=== PATIENT | male | born 1975 ===

== ENCOUNTER 2016-10-27 09:03 | Inpatient (IN) | payer SELFPAY ==
[2016-10-27] VITALS (7 sets, daily range): BP systolic 117–154; BP diastolic 72–100
[~2016-10-27] VITALS: Ht 162.5 cm; Wt 87.1 kg
[~2016-10-27 09:03] MED LIST: 'PARAFON FORTE500 M1 PO; ALBUTEROL0.09 MG/A2 INH; ANUSOL-HC25 MG R; CYCLOBENZAPRINE10 MG PO; FLEXERIL10 MG PO; HYDROCODONE BIT1 T11 PO; MOTRIN800 MG PO; Motrin,Rufen800 MG PO; NAPROSYN500 MG PO; NORCO 10-325 T1 EACH PO; NORCO 325 MG-101 TAB PO; PEPCID40 MG PO; PERCOCET 325 MG1 TA2 PO; PERCOCET 325 MG1 TA7 PO; PREDNICOT20 MG PO; PREDNISONE20 M1 PO; ROBITUSSIN AC 110 ML PO; SKELAXIN800 MG PO; ULTRAM50 MG PO; ZANTAC 150150 MG PO; ZITHROMAX Z PA250 MG PO
[2016-10-27 09:23] LABS: BASO % 0.3 % (0.0-1.0); EOS # 0.1 10*3/uL (0.0-0.4); HEMATOCRIT 43.4 % (42.0-52.0); HEMOGLOBIN 15.2 g/dl (14.0-18.0); IG # 0.1 10*3/uL (0.0-0.1); LYMPH % 27.7 % (27.0-41.0); MEAN CELL VOLUME 86.1 fl (80.0-94.0); MEAN CORPUSCULAR HGB 30.2 pg (27.0-31.0); MEAN PLATELET VOLUME 9.3 fl (9.6-12.3); MONO # 0.2 10*3/uL (0.1-1.0); MONO % 4.5 % (3.0-9.0); NEUT # 2.3 10*3/uL (2.3-7.9); NEUT % 64.1 % (47.0-73.0); PLATELET COUNT AUTOMATED 130 10*3/uL (130-400); RED BLOOD COUNT 5.04 10*6/uL (4.50-5.90); RED CELL DISTRI WIDTH 13.7 % (0-14.5); WHITE BLOOD COUNT 3.6 10*3/uL (4.8-10.8)
[2016-10-27 09:53] LABS: ALBUMIN 3.8 gm/dl (3.1-4.5); ALKALINE PHOSPHATASE 122 U/L (45-117); BILIRUBIN, TOTAL 0.8 mg/dl (0.2-1.0); BUN 16 mg/dl (7-24); CARBON DIOXIDE 23 mmol/L (21-32); CHLORIDE 97 mmol/L (98-107); EST GLOM FILT AFRICAN AMERICAN > 60 ml/min; GLUCOSE 456 mg/dL (65-99); POTASSIUM 4.4 mmol/L (3.5-5.1); SGOT/AST 43 IU/L (3-35); SGPT/ALT 101 U/L (12-78); SODIUM 134 mmol/L (136-145); TOTAL PROTEIN 7.3 gm/dL (6.4-8.2)
[2016-10-27] MEDS ORDERED: IBU800 MG PO (11:46)
[2016-10-27 15:00] LABS: ABG CO2 CONTENT 23.6 mmol/L (23-27); ABG HCO3 22.1 mmol/l (22-26); ABG TEMPERATURE 98.2 F (98.0-99.0); ARTERIAL BLOOD GAS PH 7.268 (7.35-7.45)
[2016-10-27 17:56] LABS: CPK 264 U/L (39-308)
[2016-10-27 17:57] LABS: TROPONIN I < 0.015 ng/ml (<0.045)
[2016-10-27 18:23] LABS: ABG BASE EXCESS -2.7 mmol/L (-2.0-2.0); ABG CO2 CONTENT 24.4 mmol/L (23-27); ABG TEMPERATURE 97.2 F (98.0-99.0); ARTERIAL BLOOD GAS PH 7.336 (7.35-7.45); ARTERIAL BLOOD GAS PO2 86.1 mmHg (80-90)
[2016-10-27 19:58] LABS: BILIRUBIN NEGATIVE (NEGATIVE); BLOOD NEGATIVE (NEGATIVE); CLARITY CLEAR (CLEAR); COLOR YELLOW (YELLOW); GLUCOSE 3+ (NEGATIVE); KETONE NEGATIVE (NEGATIVE); LEUKO ESTERASE NEGATIVE (NEGATIVE); NITRITE NEGATIVE (NEGATIVE); PH 5.5 (5.0-9.0); PROTEIN 1+ (NEGATIVE); UROBILINOGEN 0.2 E.U./dl (0.2-1.0)
[2016-10-27 20:08] LABS: URINE AMPHETAMINES < 1000 (1000ng/ml); URINE BARBITURATES < 200 (200ng/ml); URINE COCAINE < 300 (300ng/ml)
[2016-10-27 20:12] LABS: BACTERIA TRACE
[2016-10-27 20:13] LABS: RBC 0-2 rbc/hpf (0-2)
[2016-10-28] VITALS: BP 119/62
[2016-10-28 00:50] LABS: CPK 224 U/L (39-308)
[2016-10-28 00:52] LABS: TROPONIN I < 0.015 ng/ml (<0.045)
[2016-10-28 04:00] VITALS: BP 97/41
[2016-10-28 06:14] LABS: CPK 159 U/L (39-308); TROPONIN I < 0.015 ng/ml (<0.045)
[2016-10-28 06:19] LABS: BASO % 0.5 % (0.0-1.0); EOS # 0.1 10*3/uL (0.0-0.4); EOS % 2.9 % (1.0-4.0); LYMPH # 1.2 10*3/uL (1.3-4.4); LYMPH % 27.6 % (27.0-41.0); MEAN CELL VOLUME 87.2 fl (80.0-94.0); MEAN CORPUSCULAR HGB 30.4 pg (27.0-31.0); MEAN CORPUSCULAR HGB CONC 34.8 g/dl (33.0-37.0); MEAN PLATELET VOLUME 10.3 fl (9.6-12.3); MONO # 0.3 10*3/uL (0.1-1.0); MONO % 6.4 % (3.0-9.0); NEUT # 2.6 10*3/uL (2.3-7.9); NEUT % 62.1 % (47.0-73.0); PLATELET COUNT AUTOMATED 128 10*3/uL (130-400); RED BLOOD COUNT 4.05 10*6/uL (4.50-5.90); WHITE BLOOD COUNT 4.2 10*3/uL (4.8-10.8)
[2016-10-28 06:21] LABS: HEMATOCRIT 35.3 % (42.0-52.0); HEMOGLOBIN 12.3 g/dl (14.0-18.0)
[2016-10-28 06:29] LABS: ALBUMIN 3.2 gm/dl (3.1-4.5); BUN 16 mg/dl (7-24); CARBON DIOXIDE 26 mmol/L (21-32); CHLORIDE 105 mmol/L (98-107); EST GLOM FILT AFRICAN AMERICAN > 60 ml/min; GLUCOSE 156 mg/dL (65-99); MAGNESIUM 1.7 mg/dL (1.5-2.1); POTASSIUM 3.8 mmol/L (3.5-5.1); SODIUM 139 mmol/L (136-145); TRIGLYCERIDES 213 mg/dl (<150); VLDL CHOLESTEROL 43 mg/dL (6-40)
[2016-10-28 06:36] LABS: HEMOGLOBIN A1c 9.4 % (4.8-5.6)
[2016-10-28 06:39] LABS: ALKALINE PHOSPHATASE 72 U/L (45-117); BILIRUBIN, TOTAL 0.8 mg/dl (0.2-1.0); CHOLESTEROL 189 mg/dL (<200); HDL CHOLESTEROL 34 mg/dl (40-60); LDL CHOLESTEROL 112 mg/dL (9-159); PHOSPHOROUS 2.5 mg/dL (2.5-4.9); SGOT/AST 58 IU/L (3-35); SGPT/ALT 90 U/L (12-78); TOTAL PROTEIN 6.2 gm/dL (6.4-8.2)
[2016-10-28 06:41] LABS: THYROID STIM HORMONE (HS) 0.873 uIU/ml (0.358-4.75)
[2016-10-28 07:00] LABS: VITAMIN D, 25-HYDROXY 10.3 ng/mL (30-100)
[2016-10-28 07:01] LABS: FOLIC ACID 12.74 ng/mL (>5.38)
[2016-10-28 07:43] LABS: PROTHROMBIN TIME 10.3 SECONDS (9.0-12.4)
[2016-10-28 08:00] VITALS: BP 129/78
[2016-10-28 12:00] VITALS: BP 124/82; BP 128/86
== END 2016-10-28 15:27 | disposition left against medical advice (07) | DRG 917 ==
LOC: ED 09:03 → EDHOLD 10:23 → ICCU 10:23 → 5E 10-28 14:47
PROVIDERS: Internal Medicine; Nurse Practitioner Family
DX: T40.1X1A Poisoning by heroin, accidental (unintentional), initial encounter (principal); N17.0 Acute kidney failure with tubular necrosis; G93.41 Metabolic encephalopathy; J18.9 Pneumonia, unspecified organism; E87.1 Hypo-osmolality and hyponatremia; M54.31 Sciatica, right side; E11.65 Type 2 diabetes mellitus with hyperglycemia; Z53.21 Procedure and treatment not carried out due to patient leaving prior to being seen by health care provider; D72.819 Decreased white blood cell count, unspecified; Z91.14 Patient's other noncompliance with medication regimen; Z87.11 Personal history of peptic ulcer disease; Z87.81 Personal history of (healed) traumatic fracture; Z83.3 Family history of diabetes mellitus; Z80.3 Family history of malignant neoplasm of breast; Z79.1 Long term (current) use of non-steroidal anti-inflammatories (NSAID); Y92.89 Other specified places as the place of occurrence of the external cause

== ENCOUNTER 2018-02-12 11:43 | Inpatient (IN) | payer SELFPAY ==
[~2018-02-12] VITALS: Ht 162.5 cm; Wt 86.2 kg
[~2018-02-12 11:43] MED LIST changes: +IBU800 MG PO
[2018-02-12 11:46] VITALS: BP 136/96
[2018-02-12 12:11] LABS: BASO % 0.3 % (0.0-1.0); EOS # 0.1 10*3/uL (0.0-0.4); EOS % 0.7 % (1.0-4.0); HEMATOCRIT 45.8 % (42.0-52.0); HEMOGLOBIN 16.5 g/dl (14.0-18.0); LYMPH # 0.6 10*3/uL (1.3-4.4); MEAN CELL VOLUME 86.7 fl (80.0-94.0); MEAN CORPUSCULAR HGB 31.3 pg (27.0-31.0); MEAN PLATELET VOLUME 9.7 fl (9.6-12.3); MONO # 0.4 10*3/uL (0.1-1.0); MONO % 5.3 % (3.0-9.0); NEUT # 6.3 10*3/uL (2.3-7.9); NEUT % 85.3 % (47.0-73.0); PLATELET COUNT AUTOMATED 153 10*3/uL (130-400); RED BLOOD COUNT 5.28 10*6/uL (4.50-5.90); WHITE BLOOD COUNT 7.4 10*3/uL (4.8-10.8)
[2018-02-12 12:20] LABS: ACT PARTIAL THROMBO TIME 22.3 SECONDS (20.8-31.5)
[2018-02-12 12:29] LABS: ALBUMIN 4.8 gm/dl (3.1-4.5); ALKALINE PHOSPHATASE 135 U/L (45-117); BUN 30 mg/dl (7-24); CHLORIDE 98 mmol/L (98-107); CREATININE 1.48 mg/dL (0.70-1.30); POTASSIUM 4.2 mmol/L (3.5-5.1); SGOT/AST 576 IU/L (3-35); SGPT/ALT 942 U/L (12-78); SODIUM 132 mmol/L (136-145); TOTAL PROTEIN 9.1 gm/dL (6.4-8.2)
[2018-02-12 13:26] LABS: BILIRUBIN NEGATIVE (NEGATIVE); BLOOD NEGATIVE (NEGATIVE); CLARITY CLEAR (CLEAR); COLOR YELLOW (YELLOW); GLUCOSE 3+ (NEGATIVE); KETONE NEGATIVE (NEGATIVE); LEUKO ESTERASE NEGATIVE (NEGATIVE); NITRITE NEGATIVE (NEGATIVE); SPECIFIC GRAVITY <= 1.005 (1.005-1.030); UROBILINOGEN 0.2 E.U./dl (0.2-1.0)
[2018-02-12 13:47] LABS: EPITHELIAL CELLS 0-2
[2018-02-12 16:00] VITALS: BP 154/98
[2018-02-12 20:00] VITALS: BP 136/84
[2018-02-12 20:38] VITALS: BP 136/84
[2018-02-12 20:47] VITALS: BP 142/80
[2018-02-13] VITALS: BP 131/74
[2018-02-13 04:56] LABS: URINE AMPHETAMINES < 1000 (1000ng/ml); URINE BARBITURATES < 200 (200ng/ml); URINE BENZODIAZEPINES < 200 (200ng/ml); URINE CANNABINOIDS (THC) < 50 (50ng/ml); URINE COCAINE < 300 (300ng/ml); URINE METHADONE < 300 (300ng/ml); URINE OPIATES > 300 (300ng/ml)
[2018-02-13 05:01] LABS: URINE PHENCYCLIDINE < 25 (25ng/ml)
[2018-02-13 07:07] LABS: BASO % 0.4 % (0.0-1.0); EOS # 0.2 10*3/uL (0.0-0.4); EOS % 3.9 % (1.0-4.0); LYMPH % 22.5 % (27.0-41.0); MEAN CORPUSCULAR HGB CONC 34.3 g/dl (33.0-37.0); MEAN PLATELET VOLUME 10.1 fl (9.6-12.3); MONO # 0.3 10*3/uL (0.1-1.0); MONO % 6.3 % (3.0-9.0); NEUT % 66.2 % (47.0-73.0); RED BLOOD COUNT 4.39 10*6/uL (4.50-5.90); RED CELL DISTRI WIDTH 13.3 % (0-14.5); WHITE BLOOD COUNT 4.6 10*3/uL (4.8-10.8)
[2018-02-13 07:25] LABS: ALBUMIN 3.6 gm/dl (3.1-4.5); BUN 21 mg/dl (7-24); CHLORIDE 104 mmol/L (98-107); CHOLESTEROL 230 mg/dL (<200); CREATININE 0.69 mg/dL (0.70-1.30); HEMATOCRIT 39.7 % (42.0-52.0); HEMOGLOBIN 13.6 g/dl (14.0-18.0); MEAN CELL VOLUME 90.4 fl (80.0-94.0); PHOSPHOROUS 2.7 mg/dL (2.5-4.9); PLATELET COUNT AUTOMATED 104 10*3/uL (130-400); POTASSIUM 4.5 mmol/L (3.5-5.1); SGOT/AST 472 IU/L (3-35); SGPT/ALT 774 U/L (12-78); SODIUM 138 mmol/L (136-145); TOTAL PROTEIN 7.1 gm/dL (6.4-8.2); TRIGLYCERIDES 160 mg/dl (<150); VLDL CHOLESTEROL 32 mg/dL (6-40)
[2018-02-13 07:26] LABS: ALKALINE PHOSPHATASE 104 U/L (45-117); HDL CHOLESTEROL 27 mg/dl (40-60); LDL CHOLESTEROL 171 mg/dL (9-159)
[2018-02-13 08:00] VITALS: BP 135/83
[2018-02-13 12:00] VITALS: BP 130/86
[2018-02-13 13:08] LABS: HEPATITIS B SURFACE AG Negative (Negative)
[2018-02-13] MEDS ORDERED: Humalog SQ (13:20)
[2018-02-13] MEDS ORDERED: HYDROCODONE-AC1 EAC1 PO (13:20)
[2018-02-13] MEDS ORDERED: LEVEMIR100 UNIT/1 SQ ×2 (13:20→14:16)
[2018-02-13] MEDS ORDERED: LISINOPRIL2.5 MG PO (13:23)
[2018-02-17 10:24] LABS: HEPATITIS C VIRUS ANTIBODY >11.0 s/co (0.0-0.9)
[2018-03-06] MEDS ORDERED: VIBRAMYCIN100 MG PO (22:22)
[2018-03-06] MEDS ORDERED: KEFLEX500 M1 PO (22:22)
[2018-03-06] MEDS ORDERED: ULTRAM50 MG PO (22:45)
== END 2018-02-13 16:10 | disposition home or self-care (01) | DRG 637 ==
LOC: ED 11:43 → EDHOLD 14:17 → 5E 14:17
PROVIDERS: Emergency Medicine; Family Medicine
DX: E11.65 Type 2 diabetes mellitus with hyperglycemia (principal); N17.0 Acute kidney failure with tubular necrosis; E87.1 Hypo-osmolality and hyponatremia; E86.0 Dehydration; S20.221A Contusion of right back wall of thorax, initial encounter; D72.819 Decreased white blood cell count, unspecified; S93.401A Sprain of unspecified ligament of right ankle, initial encounter; R74.0 Nonspecific elevation of levels of transaminase and lactic acid dehydrogenase [LDH]; M54.5 Low back pain; Z83.3 Family history of diabetes mellitus; Y93.52 Activity, horseback riding; Y92.89 Other specified places as the place of occurrence of the external cause; Z79.4 Long term (current) use of insulin; Z79.84 Long term (current) use of oral hypoglycemic drugs; Z80.3 Family history of malignant neoplasm of breast; Z79.899 Other long term (current) drug therapy; V80.010A Animal-rider injured by fall from or being thrown from horse in noncollision accident, initial encounter; Y99.8 Other external cause status

== ENCOUNTER 2018-02-28 13:06 | Emergency (ER) | payer OTHER ==
[~2018-02-28] VITALS: Ht 162.5 cm; Wt 81.6 kg
[~2018-02-28 13:06] MED LIST changes: +HYDROCODONE-AC1 EAC1 PO; +Humalog SQ; +LEVEMIR100 UNIT/1 SQ; +LISINOPRIL2.5 MG PO
[2018-02-28] MEDS ORDERED: NORCO 10-325 T1 EACH PO (13:41)
[2018-02-28] MEDS ORDERED: KEFLEX500 M1 PO (13:41)
[2018-03-06] MEDS ORDERED: VIBRAMYCIN100 MG PO (22:22)
[2018-03-06] MEDS ORDERED: KEFLEX500 M1 PO (22:22)
[2018-03-06] MEDS ORDERED: ULTRAM50 MG PO (22:45)
== END 2018-02-28 13:49 | disposition home or self-care (01) ==
LOC: ED 13:06
DX: T24.211A Burn of second degree of right thigh, initial encounter (principal); E11.65 Type 2 diabetes mellitus with hyperglycemia; F11.10 Opioid abuse, uncomplicated; Z98.890 Other specified postprocedural states; Z79.899 Other long term (current) drug therapy; X10.0XXA Contact with hot drinks, initial encounter; Y93.89 Activity, other specified; Y92.89 Other specified places as the place of occurrence of the external cause; Y99.9 Unspecified external cause status

== ENCOUNTER 2018-05-04 10:40 | Emergency (ER) | payer OTHER ==
[~2018-05-04] VITALS: Ht 162.5 cm; Wt 79.4 kg
--- NOTE | ~2018-05-04 | EKG ---
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
[~2018-05-04 10:40] MED LIST changes: +KEFLEX500 M1 PO; +VIBRAMYCIN100 MG PO
[2018-05-04 11:42] LABS: BASO % 0.1 % (0.0-1.0); EOS % 0.3 % (1.0-4.0); HEMATOCRIT 42.2 % (42.0-52.0); HEMOGLOBIN 15.3 g/dl (14.0-18.0); LYMPH # 0.6 10*3/uL (1.3-4.4); LYMPH % 8.1 % (27.0-41.0); MEAN CELL VOLUME 84.6 fl (80.0-94.0); MEAN CORPUSCULAR HGB 30.7 pg (27.0-31.0); MEAN CORPUSCULAR HGB CONC 36.3 g/dl (33.0-37.0); MEAN PLATELET VOLUME 10.2 fl (9.6-12.3); MONO # 0.4 10*3/uL (0.1-1.0); MONO % 5.6 % (3.0-9.0); NEUT # 6.5 10*3/uL (2.3-7.9); NEUT % 85.6 % (47.0-73.0); PLATELET COUNT AUTOMATED 146 10*3/uL (130-400); RED BLOOD COUNT 4.99 10*6/uL (4.50-5.90); RED CELL DISTRI WIDTH 13.1 % (0-14.5); WHITE BLOOD COUNT 7.5 10*3/uL (4.8-10.8)
[2018-05-04 11:45] LABS: BILIRUBIN 1+ (NEGATIVE); BLOOD TRACE-INTACT (NEGATIVE); CLARITY CLEAR (CLEAR); COLOR YELLOW (YELLOW); GLUCOSE TRACE (NEGATIVE); KETONE NEGATIVE (NEGATIVE); LEUKO ESTERASE NEGATIVE (NEGATIVE); NITRITE NEGATIVE (NEGATIVE); SPECIFIC GRAVITY >= 1.030 (1.005-1.030); UROBILINOGEN 0.2 E.U./dl (0.2-1.0)
[2018-05-04 11:45] LABS: ALKALINE PHOSPHATASE 104 U/L (45-117); BUN 14 mg/dl (7-24); CHLORIDE 102 mmol/L (98-107); CREATININE 0.72 mg/dL (0.70-1.30); LIPASE 128 U/L (73-393); POTASSIUM 3.8 mmol/L (3.5-5.1); SGOT/AST 59 IU/L (3-35); SGPT/ALT 219 U/L (12-78); SODIUM 137 mmol/L (136-145); TOTAL PROTEIN 8.7 gm/dL (6.4-8.2)
[2018-05-04 11:47] LABS: TROPONIN I < 0.015 ng/ml (<0.045)
[2018-05-04 11:59] LABS: BACTERIA TRACE; MUCOUS 2+
[2018-05-05] MEDS ORDERED: ZOFRAN4 MG PO (11:50)
[2018-05-05] MEDS ORDERED: SUNMARK OMEPRAZ20 M1 PO (11:50)
[2018-05-05] MEDS ORDERED: CARAFATE1 G1 PO (11:50)
[2018-05-05] MEDS ORDERED: ZANTAC 150150 MG PO (11:50)
== END 2018-05-04 15:41 | disposition home or self-care (01) ==
LOC: ED 10:40
PROVIDERS: Nurse Practitioner
DX: R10.12 Left upper quadrant pain (principal); R07.89 Other chest pain; F10.10 Alcohol abuse, uncomplicated

== ENCOUNTER 2018-05-05 10:52 | Emergency (ER) | payer OTHER ==
[~2018-05-05] VITALS: Ht 162.5 cm; Wt 79.4 kg
[2018-05-05 11:24] LABS: BASO % 0.2 % (0.0-1.0); EOS # 0.1 10*3/uL (0.0-0.4); EOS % 1.4 % (1.0-4.0); HEMATOCRIT 38.2 % (42.0-52.0); HEMOGLOBIN 13.9 g/dl (14.0-18.0); LYMPH # 0.9 10*3/uL (1.3-4.4); MEAN CELL VOLUME 84.1 fl (80.0-94.0); MEAN CORPUSCULAR HGB 30.6 pg (27.0-31.0); MEAN CORPUSCULAR HGB CONC 36.4 g/dl (33.0-37.0); MEAN PLATELET VOLUME 10.2 fl (9.6-12.3); MONO # 0.4 10*3/uL (0.1-1.0); MONO % 6.6 % (3.0-9.0); NEUT # 4.2 10*3/uL (2.3-7.9); NEUT % 75.6 % (47.0-73.0); PLATELET COUNT AUTOMATED 144 10*3/uL (130-400); RED BLOOD COUNT 4.54 10*6/uL (4.50-5.90); WHITE BLOOD COUNT 5.6 10*3/uL (4.8-10.8)
[2018-05-05 11:42] LABS: ALBUMIN 3.5 gm/dl (3.1-4.5); ALKALINE PHOSPHATASE 98 U/L (45-117); BUN 12 mg/dl (7-24); CHLORIDE 104 mmol/L (98-107); CREATININE 0.76 mg/dL (0.70-1.30); LIPASE 186 U/L (73-393); POTASSIUM 3.7 mmol/L (3.5-5.1); SGOT/AST 79 IU/L (3-35); SGPT/ALT 187 U/L (12-78); SODIUM 137 mmol/L (136-145); TOTAL PROTEIN 8.2 gm/dL (6.4-8.2)
[2018-05-05] MEDS ORDERED: SUNMARK OMEPRAZ20 M1 PO (11:50)
[2018-05-05] MEDS ORDERED: ZOFRAN4 MG PO (11:50)
[2018-05-05] MEDS ORDERED: CARAFATE1 G1 PO (11:50)
[2018-05-05] MEDS ORDERED: ZANTAC 150150 MG PO (11:50)
== END 2018-05-05 12:58 | disposition home or self-care (01) ==
LOC: ED 10:52
PROVIDERS: Nurse Practitioner Family
DX: K29.00 Acute gastritis without bleeding (principal); R03.0 Elevated blood-pressure reading, without diagnosis of hypertension; R73.9 Hyperglycemia, unspecified; R94.5 Abnormal results of liver function studies

== ENCOUNTER 2018-05-15 09:43 | Emergency (ER) | payer OTHER ==
[~2018-05-15] VITALS: Wt 79.4 kg
[~2018-05-15 09:43] MED LIST changes: +CARAFATE1 G1 PO; +SUNMARK OMEPRAZ20 M1 PO; +ZOFRAN4 MG PO
[2018-05-15] MEDS ORDERED: Motrin,Rufen800 MG PO (11:33)
[2018-05-15] MEDS ORDERED: PERCOCET 5-3251 EACH PO (11:33)
== END 2018-05-15 12:40 | disposition home or self-care (01) ==
LOC: ED 09:43
DX: S30.0XXA Contusion of lower back and pelvis, initial encounter (principal); E11.9 Type 2 diabetes mellitus without complications; V80.010A Animal-rider injured by fall from or being thrown from horse in noncollision accident, initial encounter; Y93.52 Activity, horseback riding; Y92.89 Other specified places as the place of occurrence of the external cause; Y99.8 Other external cause status

== ENCOUNTER 2018-07-02 13:16 | Emergency (ER) | payer OTHER ==
[~2018-07-02] VITALS: Ht 162.5 cm; Wt 81.6 kg
[~2018-07-02 13:16] MED LIST changes: +PERCOCET 5-3251 EACH PO
[2018-07-02 14:37] LABS: BASO % 0.4 % (0.0-1.0); EOS # 0.2 10*3/uL (0.0-0.4); EOS % 4.4 % (1.0-4.0); HEMATOCRIT 45.5 % (42.0-52.0); HEMOGLOBIN 16.3 g/dl (14.0-18.0); LYMPH # 0.8 10*3/uL (1.3-4.4); LYMPH % 16.6 % (27.0-41.0); MEAN CELL VOLUME 86.3 fl (80.0-94.0); MEAN CORPUSCULAR HGB 30.9 pg (27.0-31.0); MEAN CORPUSCULAR HGB CONC 35.8 g/dl (33.0-37.0); MEAN PLATELET VOLUME 9.7 fl (9.6-12.3); MONO # 0.3 10*3/uL (0.1-1.0); MONO % 6.4 % (3.0-9.0); NEUT # 3.4 10*3/uL (2.3-7.9); NEUT % 71.6 % (47.0-73.0); PLATELET COUNT AUTOMATED 180 10*3/uL (130-400); RED BLOOD COUNT 5.27 10*6/uL (4.50-5.90); RED CELL DISTRI WIDTH 12.8 % (0-14.5); WHITE BLOOD COUNT 4.8 10*3/uL (4.8-10.8)
[2018-07-02 14:53] LABS: ALBUMIN 3.6 gm/dl (3.1-4.5); ALKALINE PHOSPHATASE 138 U/L (45-117); BUN 19 mg/dl (7-24); CHLORIDE 98 mmol/L (98-107); CREATININE 1.04 mg/dL (0.70-1.30); POTASSIUM 4.6 mmol/L (3.5-5.1); SGOT/AST 90 IU/L (3-35); SGPT/ALT 199 U/L (12-78); SODIUM 135 mmol/L (136-145); TOTAL PROTEIN 8.6 gm/dL (6.4-8.2)
[2018-07-02 14:57] LABS: BILIRUBIN NEGATIVE (NEGATIVE); BLOOD NEGATIVE (NEGATIVE); CLARITY CLEAR (CLEAR); COLOR YELLOW (YELLOW); GLUCOSE 3+ (NEGATIVE); KETONE NEGATIVE (NEGATIVE); LEUKO ESTERASE NEGATIVE (NEGATIVE); NITRITE NEGATIVE (NEGATIVE); PH 6.5 (5.0-9.0); UROBILINOGEN 0.2 E.U./dl (0.2-1.0)
[2018-07-02 15:07] LABS: BACTERIA TRACE; EPITHELIAL CELLS 0-2; RBC 0-2 rbc/hpf (0-2); WBC 0-2 wbc/hpf (0-5)
[2018-07-02] MEDS ORDERED: LEVEMIR100 UNIT/1 SQ (15:29)
[2018-07-02] MEDS ORDERED: Humalog SQ (15:29)
== END 2018-07-02 15:31 | disposition home or self-care (01) ==
LOC: ED 13:16
PROVIDERS: Nurse Practitioner Family
DX: E11.65 Type 2 diabetes mellitus with hyperglycemia (principal); Z79.899 Other long term (current) drug therapy

== ENCOUNTER 2018-07-31 14:51 | Emergency (ER) | payer OTHER ==
[~2018-07-31] VITALS: Ht 162.5 cm; Wt 77.1 kg
[2018-07-31] MEDS ORDERED: FLONASE ALLERG9.9 ML NAS (16:24)
[2018-07-31] MEDS ORDERED: AUGMENTIN 875875 MG PO (16:24)
== END 2018-07-31 16:31 | disposition home or self-care (01) ==
LOC: ED 14:51
DX: J01.90 Acute sinusitis, unspecified (principal); J40 Bronchitis, not specified as acute or chronic

== ENCOUNTER 2018-08-13 15:43 | Emergency (ER) | payer OTHER ==
[~2018-08-13] VITALS: Ht 162.5 cm; Wt 77.1 kg
[~2018-08-13 15:43] MED LIST changes: +AUGMENTIN 875875 MG PO; +FLONASE ALLERG9.9 ML NAS
== END 2018-08-13 19:01 | disposition home or self-care (01) ==
LOC: ED 15:43
DX: S40.011A Contusion of right shoulder, initial encounter (principal); S70.01XA Contusion of right hip, initial encounter; V80.010A Animal-rider injured by fall from or being thrown from horse in noncollision accident, initial encounter; Y93.89 Activity, other specified; Y92.89 Other specified places as the place of occurrence of the external cause; Y99.8 Other external cause status

== ENCOUNTER 2019-04-24 13:16 | Emergency (ER) | payer SELFPAY ==
[~2019-04-24] VITALS: Ht 162.5 cm; Wt 85.3 kg
[~2019-04-24 13:16] MED LIST changes: +Motrin,Rufen400 MG PO; +TYLENOL325 M1 PO
[2019-04-24 14:16] LABS: BASO % 0.2 % (0.0-1.0); EOS # 0.1 10*3/uL (0.0-0.4); EOS % 2.3 % (1.0-4.0); HEMATOCRIT 45.3 % (42.0-52.0); HEMOGLOBIN 15.8 g/dl (14.0-18.0); LYMPH # 1.1 10*3/uL (1.3-4.4); LYMPH % 25.7 % (27.0-41.0); MEAN CELL VOLUME 84.2 fl (80.0-94.0); MEAN CORPUSCULAR HGB 29.4 pg (27.0-31.0); MEAN CORPUSCULAR HGB CONC 34.9 g/dl (33.0-37.0); MEAN PLATELET VOLUME 10.3 fl (9.6-12.3); MONO # 0.3 10*3/uL (0.1-1.0); MONO % 6.1 % (3.0-9.0); NEUT # 2.8 10*3/uL (2.3-7.9); NEUT % 64.3 % (47.0-73.0); PLATELET COUNT AUTOMATED 124 10*3/uL (130-400); RED BLOOD COUNT 5.38 10*6/uL (4.50-5.90); RED CELL DISTRI WIDTH 12.3 % (0-14.5); WHITE BLOOD COUNT 4.3 10*3/uL (4.8-10.8)
[2019-04-24 14:30] LABS: ALBUMIN 4.2 gm/dl (3.1-4.5); ALKALINE PHOSPHATASE 110 U/L (45-117); BUN 14 mg/dl (7-24); CHLORIDE 103 mmol/L (98-107); CREATININE 0.77 mg/dL (0.70-1.30); SGOT/AST 71 IU/L (3-35); SGPT/ALT 170 U/L (12-78); SODIUM 136 mmol/L (136-145); TOTAL PROTEIN 8.6 gm/dL (6.4-8.2)
[2019-04-24 14:56] LABS: BILIRUBIN NEGATIVE (NEGATIVE); BLOOD NEGATIVE (NEGATIVE); CLARITY CLEAR (CLEAR); COLOR YELLOW (YELLOW); GLUCOSE 3+ (NEGATIVE); KETONE NEGATIVE (NEGATIVE); LEUKO ESTERASE NEGATIVE (NEGATIVE); NITRITE NEGATIVE (NEGATIVE); UROBILINOGEN 0.2 E.U./dl (0.2-1.0)
[2019-04-24 15:08] LABS: BACTERIA TRACE; EPITHELIAL CELLS 0-2; WBC 0-2 wbc/hpf (0-5)
== END 2019-04-24 16:54 | disposition home or self-care (01) ==
LOC: ED 13:16
PROVIDERS: Physician Assistant
DX: E11.9 Type 2 diabetes mellitus without complications (principal); F11.10 Opioid abuse, uncomplicated; Z98.890 Other specified postprocedural states; Z79.899 Other long term (current) drug therapy; Z79.4 Long term (current) use of insulin

== ENCOUNTER → 2019-04-30 | Outpatient (CLI) | payer SELFPAY | END | disposition home or self-care (01) | LOC: RESCLI 02:27 | DX: E11.9 Type 2 diabetes mellitus without complications (principal); I10 Essential (primary) hypertension; B18.2 Chronic viral hepatitis C; Z79.899 Other long term (current) drug therapy ==

== ENCOUNTER → 2019-05-01 | Outpatient (CLI) | payer SELFPAY ==
[2019-05-01 08:59] LABS: BILIRUBIN NEGATIVE (NEGATIVE); BLOOD NEGATIVE (NEGATIVE); CLARITY CLEAR (CLEAR); COLOR YELLOW (YELLOW); GLUCOSE 3+ (NEGATIVE); KETONE NEGATIVE (NEGATIVE); LEUKO ESTERASE NEGATIVE (NEGATIVE); NITRITE NEGATIVE (NEGATIVE); SPECIFIC GRAVITY 1.025 (1.005-1.030); UROBILINOGEN 0.2 E.U./dl (0.2-1.0)
[2019-05-01 09:07] LABS: BACTERIA TRACE; MUCOUS TRACE
[2019-05-01 09:26] LABS: ALBUMIN 4.2 gm/dl (3.1-4.5); ALKALINE PHOSPHATASE 101 U/L (45-117); BUN 15 mg/dl (7-24); CHLORIDE 104 mmol/L (98-107); CHOLESTEROL 196 mg/dL (<200); HDL CHOLESTEROL 25 mg/dl (40-60); LDL CHOLESTEROL 134 mg/dL (9-159); POTASSIUM 3.6 mmol/L (3.5-5.1); SGOT/AST 70 IU/L (3-35); SGPT/ALT 174 U/L (12-78); SODIUM 136 mmol/L (136-145); TOTAL PROTEIN 8.4 gm/dL (6.4-8.2); TRIGLYCERIDES 184 mg/dl (<150); VLDL CHOLESTEROL 37 mg/dL (6-40)
[2019-05-01 09:59] LABS: BASO % 0.4 % (0.0-1.0); EOS # 0.2 10*3/uL (0.0-0.4); HEMATOCRIT 46.8 % (42.0-52.0); HEMOGLOBIN 16.4 g/dl (14.0-18.0); LYMPH # 1.1 10*3/uL (1.3-4.4); MEAN CELL VOLUME 82.7 fl (80.0-94.0); MEAN PLATELET VOLUME 11.3 fl (9.6-12.3); MONO # 0.2 10*3/uL (0.1-1.0); MONO % 4.6 % (3.0-9.0); NEUT # 3.4 10*3/uL (2.3-7.9); NEUT % 68.6 % (47.0-73.0); PLATELET COUNT AUTOMATED 152 10*3/uL (130-400); RED BLOOD COUNT 5.66 10*6/uL (4.50-5.90); RED CELL DISTRI WIDTH 12.3 % (0-14.5)
== END | disposition home or self-care (01) ==
LOC: LAB 08:14
PROVIDERS: Internal Medicine
DX: E11.9 Type 2 diabetes mellitus without complications (principal)

== ENCOUNTER → 2019-06-04 | Outpatient (CLI) | payer SELFPAY | END | disposition home or self-care (01) | LOC: RESCLI 01:09 | DX: E11.9 Type 2 diabetes mellitus without complications (principal); I10 Essential (primary) hypertension; E78.5 Hyperlipidemia, unspecified; E55.9 Vitamin D deficiency, unspecified; B18.2 Chronic viral hepatitis C; Z79.899 Other long term (current) drug therapy ==

== ENCOUNTER 2021-12-10 05:59 | Emergency (ER) | payer SELFPAY ==
[~2021-12-10] VITALS: Ht 162.5 cm; Wt 74.8 kg
[2021-12-10 07:05] LABS: BASO % 0.4 % (0.0-1.0); EOS % 0.7 % (1.0-4.0); HEMATOCRIT 41.1 % (42.0-52.0); LYMPH # 1.3 10*3/uL (1.3-4.4); LYMPH % 22.2 % (27.0-41.0); MEAN CELL VOLUME 79.5 fl (80.0-94.0); MEAN CORPUSCULAR HGB 28.4 pg (27.0-31.0); MEAN CORPUSCULAR HGB CONC 35.8 g/dl (33.0-37.0); MEAN PLATELET VOLUME 10.3 fl (9.6-12.3); MONO # 0.2 10*3/uL (0.1-1.0); NEUT # 4.1 10*3/uL (2.3-7.9); NEUT % 72.5 % (47.0-73.0); PLATELET COUNT AUTOMATED 132 10*3/uL (130-400); RED BLOOD COUNT 5.17 10*6/uL (4.50-5.90); RED CELL DISTRI WIDTH 12.8 % (0-14.5); WHITE BLOOD COUNT 5.7 10*3/uL (4.8-10.8)
[2021-12-10 07:36] LABS: ALKALINE PHOSPHATASE 143 U/L (45-117); BUN 13 mg/dl (7-24); CHLORIDE 107 mmol/L (98-107); CREATININE 0.76 mg/dL (0.70-1.30); LIPASE 197 U/L (73-393); POTASSIUM 3.9 mmol/L (3.5-5.1); SGOT/AST 78 IU/L (3-35); SGPT/ALT 149 U/L (12-78); SODIUM 139 mmol/L (136-145); TOTAL PROTEIN 8.5 gm/dL (6.4-8.2)
[2021-12-10] MEDS ORDERED: ZOFRAN4 MG PO (10:05)
== END 2021-12-10 10:13 | disposition home or self-care (01) ==
LOC: ED 05:59
PROVIDERS: Emergency Medicine
DX: K52.9 Noninfective gastroenteritis and colitis, unspecified (principal); E11.9 Type 2 diabetes mellitus without complications

== ENCOUNTER 2021-12-14 04:40 | Emergency (ER) | payer SELFPAY ==
[~2021-12-14] VITALS: Ht 162.5 cm; Wt 72.6 kg
[2021-12-14] MEDS ORDERED: NAPROXEN250 MG PO (05:45)
== END 2021-12-14 05:48 | disposition home or self-care (01) ==
LOC: ED 04:40
DX: S20.212A Contusion of left front wall of thorax, initial encounter (principal); F11.10 Opioid abuse, uncomplicated; Z98.890 Other specified postprocedural states; Z79.899 Other long term (current) drug therapy; W55.19XA Other contact with horse, initial encounter; Y93.01 Activity, walking, marching and hiking; Y92.89 Other specified places as the place of occurrence of the external cause; Y99.9 Unspecified external cause status

== ENCOUNTER 2023-01-30 10:08 | Emergency (ER) | payer OTHER ==
[~2023-01-30] VITALS: Ht 162.5 cm; Wt 78.9 kg
[~2023-01-30 10:08] MED LIST changes: +NAPROXEN250 MG PO
[2023-01-30] MEDS ORDERED: Motrin,Rufen800 MG PO (12:50)
== END 2023-01-30 12:59 | disposition home or self-care (01) ==
LOC: ED 10:08
DX: S43.101A Unspecified dislocation of right acromioclavicular joint, initial encounter (principal); Z79.899 Other long term (current) drug therapy; V80.010A Animal-rider injured by fall from or being thrown from horse in noncollision accident, initial encounter; Y93.89 Activity, other specified; Y92.89 Other specified places as the place of occurrence of the external cause; Y99.8 Other external cause status

== ENCOUNTER 2023-12-12 21:17 | Emergency (ER) | payer SELFPAY ==
[~2023-12-12] VITALS: Ht 162.5 cm; Wt 77.1 kg
[2023-12-12] MEDS ORDERED: METFORMIN HYD1000 MG PO (21:32)
[2023-12-12] MEDS ORDERED: VIBRAMYCIN100 MG PO (22:03)
[2023-12-12] MEDS ORDERED: Doxycycline Hyclate 100 MG CAP PO ONE (22:05)
== END 2023-12-12 22:28 | disposition home or self-care (01) ==
LOC: ED 21:17
DX: L03.116 Cellulitis of left lower limb (principal); E11.9 Type 2 diabetes mellitus without complications; Z79.899 Other long term (current) drug therapy; Z98.890 Other specified postprocedural states